=== PATIENT | male | born 1995 | race Hispanic/Latino ===

== ENCOUNTER → 2020-10-09 | Outpatient (CLI) | payer OTHER ==
--- NOTE | 2020-10-09 17:04 | REP ---
INDICATION: LT SHOULDER PAIN. COMPARISON: None. TECHNIQUE: Coronal oblique T1 and fat suppressed T2. Sagittal oblique fat suppressed T2. Axial [id number] and T2 FLASH. FINDINGS: There is mild to moderate hypertrophic degenerative change seen involving the acromioclavicular joint. The acromion process is a minimal type 2. Patchy and linear T2 hyper signal is seen in the supraspinatus tendon without evidence of musculotendinous retraction or muscular atrophy. Normal appearing low signal is seen throughout the infraspinatus and teres minor tendons. Minimal patchy T2 hyper signal is seen in the subscapularis tendon. There is no chin abnormal coracohumeral or coracoacromial ligamentous thickening. The biceps tendon resides within the bicipital groove. There is no glenohumeral joint effusion. There is a tiny amount of fluid in the subcoracoid recess. Multiple T2 hyper for signal foci are seen in the superolateral humeral head consistent with small osseous cysts. There is evidence of linear hyper signal in the superior labrum which appears to be anterior to posterior. There is also labral truncation. IMPRESSION: 1. There is evidence of a labral tear which may be a SLAP lesion. This could be confirmed with shoulder MRI arthrography if clinically relevant. 2. There is supraspinatus tendinitis/tendinosis which is moderate in appearance. 3. AC joint changes as described above. 4. Minimal subscapularis tendinitis/tendinosis. 5. Other findings as described above. <Electronically signed by Ishaan Gillis > 10/09/20 [id number]
== END ==
LOC: M RAD 15:28
DX: M25.512 Pain in left shoulder (principal); M75.92 Shoulder lesion, unspecified, left shoulder